=== PATIENT | female | born 1995 | race Two or more races ===

== ENCOUNTER 2021-09-23 21:36 | Emergency (ER) | payer BC, MEDICAID ==
[2021-09-23] MEDS ORDERED: Ondansetron 4 MG/2 ML SDV IVPUSH ONE (22:02)
[2021-09-23] MEDS ORDERED: Sodium Chloride 0.9% 10 ML Syringe FLUSH PRN (22:02)
[2021-09-23] MEDS ORDERED: Sodium Chloride 0.9% 1,000 ML IV SCH (22:15)
--- NOTE | 2021-09-23 23:02 | EDM.PDOC ---
ED HPI GENERAL MEDICAL PROBLEM - General Chief Complaint: Abdominal Pain Stated Complaint: ABD PAIN Time Seen by Provider: 09/23/21 22:41 Source of Information: Reports: Patient History Limitations: Reports: No Limitations - History of Present Illness INITIAL COMMENTS - FREE TEXT/NARRATIVE: Mrs. Lagunas is a very pleasant 26-year-old woman who now presents to the ED after developing sharp/crampy right lower quadrant abdominal pain this past 09/21/2021. She states that the pain initially came and went, but has become more constant since, and progressively been getting worse. The pain began radiating to her right lower back today. She states that the pain is made worse with walking or even sitting. She states that she has had chills since Wednesday, but no fever. She has been feeling dizzy with nausea and a decreased appetite since yesterday. No recent vomiting or diarrhea. She states that she took acetaminophen, which did not help. No prior similar symptoms. The patient states that she was seen at the walk-in clinic earlier today. She states that blood work and a urinalysis were performed. Her WBC count was 11.4, otherwise, she states that her work-up was unremarkable. The patient's LMP was 09/13/2021. Here in the ED tonight, the patient is found to be hemodynamically stable, afebrile, saturating 100% on room air. She appears to be comfortable, in no acute distress. Prior to Wednesday, the patient denies having a recent fever, chills, sore throat, ear pain, nasal or sinus congestion, cough, dyspnea, chest pain, palpitations, nausea, vomiting, constipation, diarrhea, abdominal pain, urinary symptoms, recent weight gain or weight loss, recent bloody bowel movements or black bowel movements, recent joint aches, headaches, or rashes. The patient's PCP is in [place]. She does not have a PCP here in [place]. She has not received a COVID vaccination, although did receive an influenza vaccination this season. 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: Other (See Below) (Ovarian cysts) - Past Surgical History HEENT Surgical History: Reports: Oral Surgery (dental extractions) GI Surgical History: Reports: Cholecystectomy (2015) Female Surgical History: Reports: Section (x 2) Social & Family History - Tobacco Use Tobacco Use Status *Q: Never Tobacco User Second Hand Smoke Exposure: No - Caffeine Use Caffeine Use: Reports: None - Alcohol Use Alcohol Use History: Yes Alcohol Use Frequency: Socially - Recreational Drug Use Recreational Drug Use: No - Living Situation & Occupation Living situation: Reports: , with Spouse, with Family (2 kids) Occupation: Unemployed ED ROS GENERAL - Review of Systems Review Of Systems: See Below Constitutional: Reports: No Symptoms HEENT: Reports: No Symptoms Respiratory: Reports: No Symptoms Cardiovascular: Reports: No Symptoms Endocrine: Reports: No Symptoms GI/Abdominal: Reports: No Symptoms : Reports: No Symptoms Musculoskeletal: Reports: No Symptoms Skin: Reports: No Symptoms Neurological: Reports: No Symptoms Psychiatric: Reports: No Symptoms Hematologic/Lymphatic: Reports: No Symptoms Immunologic: Reports: No Symptoms ED EXAM, GI/ABD - Physical Exam Exam: See Below Exam Limited By: No Limitations General Appearance: Alert, WD/WN, No Apparent Distress Eyes: Bilateral: Normal Appearance, EOMI Ears: Normal External Exam, Hearing Grossly Normal Nose: Normal Inspection Throat/Mouth: Normal Inspection, Normal Lips, Normal Voice, No Airway Compromise Head: Atraumatic, Normocephalic Neck: Normal Inspection, Full Range of Motion Respiratory/Chest: No Respiratory Distress, Lungs Clear, Normal Breath Sounds, No Accessory Muscle Use Cardiovascular: Normal Peripheral Pulses, Regular Rate, Rhythm, No Edema, No Gallop, No JVD, No Murmur, No Rub GI/Abdominal Exam: Normal Bowel Sounds, Soft, No Organomegaly, No Distention, No Abnormal Bruit, No Mass, Tender (Reproducible, to the right lower quadrant only. Nontender elsewhere. No Rovsing sign. Obturator sign, psoas sign, and heel drop sign all present.) Back Exam: Normal Inspection, Full Range of Motion, CVA Tenderness (R). No: CVA Tenderness (L) Extremities: Normal Inspection, Normal Range of Motion, No Pedal Edema, Normal Capillary Refill Neurological: Alert, Oriented, Normal Cognition, No Motor/Sensory Deficits Psychiatric: Normal Affect Skin Exam: Warm, Dry, Intact, Normal Color, No Rash Course - Vital Signs Last Recorded V/S: Last Vital Signs Temp 36.9 C 09/23/21 21:51 Pulse 87 09/23/21 21:51 Resp 18 09/23/21 21:51 BP 124/87 09/23/21 21:51 Pulse Ox 100 09/23/21 21:51 - Orders/Labs/Meds Labs: Laboratory Tests 09/23/21 09/23/21 09/23/21 Range/Units 22:00 22:00 22:01 WBC 11.57 H (3.98-10.04) K/mm3 RBC 4.47 (3.98-5.22) M/mm3 Hgb 12.3 (11.2-15.7) gm/dl Hct 38.7 (34.1-44.9) % MCV 86.6 (79.4-94.8) fl MCH 27.5 (25.6-32.2) pg MCHC 31.8 L (32.2-35.5) g/dl RDW Std Deviation 42.1 (36.4-46.3) fL Plt Count 390 H (182-369) K/mm3 MPV 10.3 (9.4-12.3) fl Neut % (Auto) 65.0 (34.0-71.1) % Lymph % (Auto) 26.9 (19.3-51.7) % [place] % (Auto) 4.4 L (4.7-12.5) % Eos % (Auto) 3.2 (0.7-5.8) Baso % (Auto) 0.3 (0.1-1.2) % Neut # (Auto) 7.53 H (1.56-6.13) K/mm3 Lymph # (Auto) 3.11 (1.18-3.74) K/mm3 [place] # (Auto) 0.51 H (0.24-0.36) K/mm3 Eos # (Auto) 0.37 H (0.04-0.36) K/mm3 Baso # (Auto) 0.03 (0.01-0.08) K/mm3 Sodium 144 (136-145) mEq/L Potassium 4.0 (3.5-5.1) mEq/L Chloride 105 (98-107) mEq/L Carbon Dioxide 26 (21-32) mEq/L Anion Gap 17.0 H (5-15) BUN 12 (7-18) mg/dL Creatinine 0.7 (0.55-1.02) mg/dL Est Cr Clr Drug Dosing 99.86 mL/min Estimated GFR (MDRD) > 60 (>60) mL/min BUN/Creatinine Ratio 17.1 (14-18) Glucose 86 (70-99) mg/dL Calcium 8.7 (8.5-10.1) mg/dL Magnesium 2.0 (1.8-2.4) mg/dL Total Bilirubin 0.3 (0.2-1.0) mg/dL AST 26 (15-37) U/L ALT 39 (14-59) U/L Alkaline Phosphatase 141 H (46-116) U/L C-Reactive Protein 0.2 (<1.0) mg/dL Total Protein 8.4 H (6.4-8.2) g/dl Albumin 4.2 (3.4-5.0) g/dl Globulin 4.2 gm/dL Albumin/Globulin Ratio 1.0 (1-2) Lipase 103 (73-393) U/L Urine Color Yellow (Yellow) Urine Appearance Clear (Clear) Urine pH 7.5 (5.0-8.0) Ur Specific [place] 1.025 (1.005-1.030) Urine Protein Negative (Negative) Urine Glucose (UA) Negative (Negative) Urine Ketones Negative (Negative) Urine Occult Blood Negative (Negative) Urine Nitrite Negative (Negative) Urine Bilirubin Negative (Negative) Urine Urobilinogen 1.0 (0.2-1.0) Ur Leukocyte Esterase Negative (Negative) Urine RBC 0-5 (0-5) /hpf Urine WBC 0-5 (0-5) /hpf Ur Epithelial Cells 0-5 (0-5) /hpf Urine Bacteria Rare (FEW) /hpf Urine Mucus Not seen (FEW) /hpf Urine HCG, Qual (NEGATIVE) Influenza Type A RNA (NEGATIVE) Influenza Type B RNA (NEGATIVE) SARS-CoV-2 RNA ([place]) (NEGATIVE) 09/23/21 09/23/21 Range/Units 22:01 23:00 WBC (3.98-10.04) K/mm3 RBC (3.98-5.22) M/mm3 Hgb (11.2-15.7) gm/dl Hct (34.1-44.9) % MCV (79.4-94.8) fl MCH (25.6-32.2) pg MCHC (32.2-35.5) g/dl RDW Std Deviation (36.4-46.3) fL Plt Count (182-369) K/mm3 MPV (9.4-12.3) fl Neut % (Auto) (34.0-71.1) % Lymph % (Auto) (19.3-51.7) % [place] % (Auto) (4.7-12.5) % Eos % (Auto) (0.7-5.8) Baso % (Auto) (0.1-1.2) % Neut # (Auto) (1.56-6.13) K/mm3 Lymph # (Auto) (1.18-3.74) K/mm3 [place] # (Auto) (0.24-0.36) K/mm3 Eos # (Auto) (0.04-0.36) K/mm3 Baso # (Auto) (0.01-0.08) K/mm3 Sodium (136-145) mEq/L Potassium (3.5-5.1) mEq/L Chloride (98-107) mEq/L Carbon Dioxide (21-32) mEq/L Anion Gap (5-15) BUN (7-18) mg/dL Creatinine (0.55-1.02) mg/dL Est Cr Clr Drug Dosing mL/min Estimated GFR (MDRD) (>60) mL/min BUN/Creatinine Ratio (14-18) Glucose (70-99) mg/dL Calcium (8.5-10.1) mg/dL Magnesium (1.8-2.4) mg/dL Total Bilirubin (0.2-1.0) mg/dL AST (15-37) U/L ALT (14-59) U/L Alkaline Phosphatase (46-116) U/L C-Reactive Protein (<1.0) mg/dL Total Protein (6.4-8.2) g/dl Albumin (3.4-5.0) g/dl Globulin gm/dL Albumin/Globulin Ratio (1-2) Lipase (73-393) U/L Urine Color (Yellow) Urine Appearance (Clear) Urine pH (5.0-8.0) Ur Specific [place] (1.005-1.030) Urine Protein (Negative) Urine Glucose (UA) (Negative) Urine Ketones (Negative) Urine Occult Blood (Negative) Urine Nitrite (Negative) Urine Bilirubin (Negative) Urine Urobilinogen (0.2-1.0) Ur Leukocyte Esterase (Negative) Urine RBC (0-5) /hpf Urine WBC (0-5) /hpf Ur Epithelial Cells (0-5) /hpf Urine Bacteria (FEW) /hpf Urine Mucus (FEW) /hpf Urine HCG, Qual Negative (NEGATIVE) Influenza Type A RNA Negative (NEGATIVE) Influenza Type B RNA Negative (NEGATIVE) SARS-CoV-2 RNA ([place]) Negative (NEGATIVE) Meds: Medications Discontinued Medications Generic Name Dose Route Start Last Admin Trade Name Freq PRN Reason Stop Dose Admin Sodium Chloride 1,000 mls @ 150 mls/hr 09/23/21 22:15 09/23/21 22:15 Normal Saline IV 150 mls/hr ASDIRECTED DIXON Administration Ondansetron HCl 4 mg 09/23/21 22:02 09/23/21 22:16 Ondansetron 4 Mg/2 Ml Sdv IVPUSH 09/23/21 22:03 4 mg ONETIME ONE Administration Sodium Chloride 10 ml 09/23/21 22:02 09/23/21 23:58 Sodium Chloride 0.9% 10 Ml Syringe FLUSH 10 ml ASDIRECTED PRN Administration Keep Vein Open - Re-Assessments/Exams Free Text/Narrative Re-Assessment/Exam: 09/23/21 22:59 The patient's history and physical examination are most consistent with acute appendicitis, although other etiologies are possible, including an unusual presentation of a right ureterolith, an ovarian cyst, or, even more remotely, a retained common bile duct stone. A CBC, CMP, magnesium level, lipase level, CRP, urinalysis, and urine test were ordered at triage. I have added a CT of the abdomen and pelvis with oral and IV contrast, and a swab for the SA RS-CoV-2 virus and influenza A + B viruses. In the meantime, the patient is being treated with some IV fluid and IV Zofran. She declined an offer for pain medication at this time. 09/24/21 00:32 The patient's CBC is remarkable for mild leukocytosis of 11.57, and thrombocytosis of 390,000, with the remainder of her CBC being unremarkable. Her CMP is remarkable for an alkaline phosphatase mildly elevated at 141, and is otherwise unremarkable. Her magnesium level is within normal limits at 2.0. Her lipase level is within normal limits at 103. Her CRP is within normal limits at 0.2. Her urinalysis is unremarkable. Her urine test is negative. Her swab for the SARS-CoV-2 virus and influenza A + B viruses is negative. 09/24/21 00:53 CT of the abdomen and pelvis with oral and IV contrast is read by Chelsea as: 1. Normal appendix in the right lower quadrant 2. Fluid-filled loops of small bowel predominantly involving the terminal ileum consistent with an ileus. Please clinically correlate for a gastroenteritis. 09/24/21 00:57 Test results discussed with the patient. As above, today's work-up is grossly unremarkable, and does not explain the cause of her symptoms. I will discharge her home with a prescription for Zofran and a referral to the clinic so that she can establish a PCP for further evaluation, if her symptoms persist. Departure - Departure Time of Disposition: 00:58 Disposition: Home, Self-Care 01 Condition: Good Clinical Impression: Right lower quadrant abdominal pain of unknown etiology - Discharge Information *PRESCRIPTION DRUG MONITORING PROGRAM REVIEWED*: Not Applicable *COPY OF PRESCRIPTION DRUG MONITORING REPORT IN PATIENT HARITHA: Not Applicable Prescriptions: Ondansetron [Zofran ODT] 1 tab PO Q8H PRN #10 tab.dis PRN Reason: Nausea/Vomiting Instructions: Abdominal Pain, Adult, [id number] Referrals: PCP,Not In Area [Primary Care Provider] - Roshni Fleming, ZE [Nurse Practitioner] - Forms: ED Department Discharge Additional Instructions: You were seen in the emergency room after developing lower right abdominal pain on Wednesday. Work-up in the ER included numerous blood tests, a urinalysis, a urine test, a swab for the SARS-CoV-2 virus and influenza A + B viruses, and a CT of y our abdomen and pelvis with oral and IV contrast. Your entire work-up was unremarkable, and does not explain the cause of your symptoms. You do not have appendicitis. You do not have a kidney stone. No ovarian cyst was seen. A prescription for the antinausea medicine Zofran ODT has been sent to [facility] [employer]. You may dissolve 1 tablet of Zofran ODT on your tongue up to every 8 hours, as needed for nausea/vomiting. We recommend that you eat a bland diet and stay adequately hydrated. If your symptoms persist, please follow-up with Roshni Fleming NP, or one of the other providers in the clinic, for further evaluation. If any other problems, please do not hesitate to return to the ER. Sepsis Event Note (ED) - Evaluation Sepsis Screening Result: No Definite Risk
[2021-09-23 23:52] LABS: CORONAVIRUS COVID-19 NAA NEGATIVE (NEGATIVE)
--- NOTE | 2021-09-24 06:43 | CT ---
CT abdomen and pelvis Technique: Multiple axial sections were obtained from above the dome of the diaphragm inferiorly through the pubic symphysis. Intravenous and oral contrast were utilized. Delayed images were also obtained through the bladder. Reconstructed coronal and sagittal images were obtained. Comparison: No prior abdomen or pelvic imaging is available. Findings: Visualized lung bases show nothing acute. Liver shows no focal parenchymal abnormality. Spleen size is normal. Adrenal glands show no nodule. Kidneys show symmetric contrast enhancement. No hydronephrosis or mass is seen. Pancreas appears within normal limits. Abdominal aorta shows no aneurysm. No retroperitoneal adenopathy is seen. No pelvic mass or adenopathy is seen. Delayed images show contrast within the distal ureters and within the bladder. Appendix is seen which is normal in size. Minimal fluid is seen within the ileus which could represent change from mild gastroenteritis but findings may also be normal. Mild increased stool is noted throughout the colon. Bone window settings were reviewed which appear within normal limits for the patient's age. Impression: 1. Slight increased stool is noted within the colon. 2. Appendix is seen which is normal. 3. Slight fluid within the terminal ileum possibly normal but difficult to completely exclude gastroenteritis if patient has correlating symptoms. Diagnostic code #3 I agree with preliminary report from 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
== END 2021-09-24 01:12 | disposition home or self-care (01) ==
LOC: JD.ED 21:36
DX: R10.31 Right lower quadrant pain (principal); Z91.018 Allergy to other foods; Z20.822 Contact with and (suspected) exposure to COVID-19
CPT/HCPCS: 0240U; 36415; 74177; 80053; 81001; 81025; 83690; 83735; 85025; 86140; 96374; 99284; J2405; J7030